=== PATIENT | female | born 1965 | race Caucasian/White ===

== ENCOUNTER → 2017-10-15 | Outpatient (CLI) | payer BC, OTHER ==
[~2017-10-15] MED LIST: ALPR-412 PO; BUPR200T2 PO; CHOLTAB3 PO; LEVO25TA5 PO
== END | disposition home or self-care (01) ==
LOC: C.RDSM 09:39
PROVIDERS: ATTEND Physical Medicine & Rehabilitation
DX: M96.1 Postlaminectomy syndrome, not elsewhere classified (principal); M54.16 Radiculopathy, lumbar region